=== PATIENT | male | born 1990 | race Caucasian/White ===

== ENCOUNTER 2017-07-17 11:56 | Emergency (ER) | payer OTHER ==
[~2017-07-17] VITALS: Ht 188 cm; Wt 97.3 kg
[~2017-07-17 11:56] MED LIST: ATIVAN2 MG PO; AUGMENTIN875 MG PO; THIAMINE HCL100 MG PO; lexapro; trileptal
[2017-07-17] MEDS ORDERED: AUGMENTIN875 MG PO (14:19)
[2017-07-17 14:28] VITALS: BP 128/75
== END 2017-07-17 14:29 | disposition home or self-care (01) ==
LOC: EME 11:56
PROC: 0HCDXZZ Extirpation of Matter from Right Lower Arm Skin, External Approach (ICD-10-PCS; principal; 2017-07-17)
DX: S60.851A Superficial foreign body of right wrist, initial encounter (principal); W34.010A Accidental discharge of airgun, initial encounter; Y92.009 Unspecified place in unspecified non-institutional (private) residence as the place of occurrence of the external cause; F17.200 Nicotine dependence, unspecified, uncomplicated
CPT/HCPCS: 73090; 99281; 99283